=== PATIENT | female | born 1935 | race Caucasian/White ===

== ENCOUNTER 2018-06-04 01:19 | Inpatient (IN) | payer MEDICARE, OTHER ==
[~2018-06-04] VITALS: Ht 165.1 cm; Wt 54.5 kg
[~2018-06-04 01:19] MED LIST: ASPI-1265 PO; DIGO-27 PO; LEVO25TA2 PO; LISI10TA4 PO; METO25TA6 PO
[2018-06-04 02:37] LABS: BASOPHILS % (AUTO) 0.2 % (0-1); EOSINOPHILS # (AUTO) 0.2 X10'3 (0-0.9); EOSINOPHILS % (AUTO) 1.1 % (0-6); HEMATOCRIT 41.2 % (35.0-45.0); LYMPHOCYTES # (AUTO) 0.8 X10'3 (1.1-4.8); LYMPHOCYTES % (AUTO) 3.4 % (21-51); MEAN CORPUSCULAR HEMOGLOBIN 30.6 PG (27.0-31.0); MEAN CORPUSCULAR HGB CONC 33.9 % (33.0-36.5); MEAN CORPUSCULAR VOLUME 90.3 FL (78-98); MEAN PLATELET VOLUME 8.6 FL (7.4-10.4); MONOCYTES # (AUTO) 1.2 X10'3 (0-0.9); MONOCYTES % (AUTO) 5.6 % (2-12); NEUTROPHILS % (AUTO) 89.7 % (42-75); PLATELET COUNT 163 X10'3 (140-440); RED BLOOD COUNT 4.57 X10'6 (4.20-5.60); RED CELL DISTRIBUTION WIDTH 13.6 % (11.5-14.5); WHITE BLOOD COUNT 22.3 X10'3 (4.5-11.0)
[2018-06-04 02:47] LABS: PROTHROMBIN TIME 10.7 SECONDS (9.0-12.0)
[2018-06-04 02:52] LABS: ALANINE AMINOTRANSFERASE 28 U/L (12-78); ALBUMIN 3.1 G/DL (3.4-5.0); ALBUMIN/GLOBULIN RATIO 0.9 (1.1-1.5); ALKALINE PHOSPHATASE 54 IU/L (46-116); ANION GAP 7 (8-16); ASPARTATE AMINO TRANSFERASE 21 U/L (10-37); BILIRUBIN,TOTAL 0.4 MG/DL (0.1-1.0); BLOOD UREA NITROGEN 15 MG/DL (7-18); BUN/CREATININE RATIO 11.8 (6.6-38.0); CALCIUM 8.5 MG/DL (8.5-10.1); CHLORIDE 106 MMOL/L (99-107); CREATININE 1.27 MG/DL (0.40-0.90); GLUCOSE 158 MG/DL (70-104); LIPASE 133 U/L (73-393); MAGNESIUM 1.5 MG/DL (1.5-2.4); POTASSIUM 4.4 MMOL/L (3.5-5.1); SODIUM 138 MMOL/L (135-145); TOTAL CARBON DIOXIDE 24.6 MMOL/L (24-32); TOTAL PROTEIN 6.4 G/DL (6.4-8.2); eGFR 40 ML/MIN
[2018-06-04] MEDS ORDERED: famotidine/PF 10 mg/ml inj IV ONE (03:05)
[2018-06-04] MEDS ORDERED: normal saline 1000ML IV soln IVB ONE ×2 (03:05)
[2018-06-04] MEDS ORDERED: ondansetron/PF 4mg/2ml inj IV ONE (03:05)
[2018-06-04 03:30] LABS: CLARITY,URINE CLEAR (Clear); COLOR,URINE YELLOW (Yellow); GLUCOSE, URINE NEGATIVE (Neg); KETONES,URINE NEGATIVE (Neg); LEUKOCYTE ESTERASE ,URINE MODERATE (Neg); NITRITES, URINE NEGATIVE (Neg); OCCULT BLOOD,URINE NEGATIVE (Neg); PROTEIN,URINE NEGATIVE (Neg); UROBILINOGEN,URINE 0.2 E.U/dL (0.2-1.0)
[2018-06-04 03:49] LABS: UA COLLECTION TYPE CLN CATCH MIDSTREAM
[2018-06-04 03:51] LABS: AMORPHOUS URATES 1+; BACTERIA,URINE 3+ /HPF (Neg); RBC,URINE NONE SEEN /HPF (0-2); SQUAMOUS EPITHELIAL CELL,UR FEW /LPF (FEW)
[2018-06-04] MEDS ORDERED: CefTRIAXone/D5W-Rocephin 1gm 50 ML IV ONE (04:40)
[2018-06-04] MEDS ORDERED: PRAV20TA4 PO (05:11)
[2018-06-04] MEDS ORDERED: PRAV40TA3 PO (05:11)
[2018-06-04] MEDS ORDERED: METO25TA6 PO (05:11)
[2018-06-04] MEDS: normal saline 1000ml 1,000 ML IV SCH ×2 (05:47→14:26)
[2018-06-04] MEDS ORDERED: mag hydrox/Alum hydrox/simeth 30ml oral suspension PO PRN (05:50)
[2018-06-04] MEDS ORDERED: morphine 4 MG/ML inj SYRINge IV PRN ×2 (05:50)
[2018-06-04] MEDS ORDERED: magnesium hydroxide 30ml (MOM) UD suspension PO PRN (05:50)
[2018-06-04] MEDS ORDERED: acetaminophen 325mg tablet PO PRN ×2 (05:50)
[2018-06-04] MEDS ORDERED: ondansetron/PF 4mg/2ml inj IV PRN (05:50)
[2018-06-04 08:00] VITALS: BP 129/56
[2018-06-04] MEDS ORDERED: non-formulary drug (Pravastatin Sodium 1 TAB) PO SCH (08:00)
[2018-06-04] MEDS ORDERED: metoprolol tartrate 25mg tablet PO SCH (08:00)
[2018-06-04] MEDS: digoxin 250mcg (0.25mg) tablet PO SCH (08:21)
[2018-06-04] MEDS: metoprolol tartrate 25mg tablet PO SCH ×2 (08:22→20:00)
[2018-06-04] MEDS: levoTHYROXINE 25mcg tablet PO SCH (08:22)
[2018-06-04] MEDS: aspirin 81mg tab.chew PO SCH (08:23)
[2018-06-04] MEDS: lisinopril 10 MG tablet PO SCH (08:23)
[2018-06-04 10:00] VITALS: BP 91/35
[2018-06-04] MEDS: enoxaparin 40mg/0.4ml syringe SUBCUT SCH (17:20)
[2018-06-04] MEDS: pantoprazole 40 MG vial IV SCH (17:21)
[2018-06-04] MEDS: piperacillin/tazo 4.5gm/100ml 100 ML IV SCH (17:39)
[2018-06-04 18:00] VITALS: BP 91/30
[2018-06-04 20:30] VITALS: BP 103/41
[2018-06-04] MEDS: pravastatin 40mg tablet PO SCH ×2 (20:42→20:43)
[2018-06-04 22:00] VITALS: BP 109/37
[2018-06-05] MEDS: piperacillin/tazo 4.5gm/100ml 100 ML IV SCH ×3 (00:48→15:33)
[2018-06-05] MEDS: normal saline 1000ml 1,000 ML IV SCH ×2 (00:52→15:33)
[2018-06-05 06:00] VITALS: BP 106/39
[2018-06-05 06:12] LABS: BASOPHILS % (AUTO) 0.3 % (0-1); EOSINOPHILS # (AUTO) 0.7 X10'3 (0-0.9); EOSINOPHILS % (AUTO) 5.8 % (0-6); HEMATOCRIT 35.5 % (35.0-45.0); HEMOGLOBIN 12.3 g/dl (12.0-16.0); LYMPHOCYTES # (AUTO) 2.4 X10'3 (1.1-4.8); LYMPHOCYTES % (AUTO) 19.4 % (21-51); MEAN CORPUSCULAR HEMOGLOBIN 30.9 PG (27.0-31.0); MEAN CORPUSCULAR HGB CONC 34.7 % (33.0-36.5); MONOCYTES % (AUTO) 8.4 % (2-12); NEUTROPHILS # (AUTO) 8.1 X10'3 (1.8-7.7); NEUTROPHILS % (AUTO) 66.1 % (42-75); PLATELET COUNT 132 X10'3 (140-440); RED BLOOD COUNT 3.99 X10'6 (4.20-5.60); RED CELL DISTRIBUTION WIDTH 13.7 % (11.5-14.5); WHITE BLOOD COUNT 12.3 X10'3 (4.5-11.0)
[2018-06-05 06:25] LABS: ALBUMIN 2.7 G/DL (3.4-5.0); ANION GAP 6 (8-16); BLOOD UREA NITROGEN 13 MG/DL (7-18); BUN/CREATININE RATIO 9.5 (6.6-38.0); CALCIUM 8.5 MG/DL (8.5-10.1); CHLORIDE 105 MMOL/L (99-107); CREATININE 1.37 MG/DL (0.40-0.90); GLUCOSE 93 MG/DL (70-104); POTASSIUM 3.8 MMOL/L (3.5-5.1); SODIUM 136 MMOL/L (135-145); TOTAL CARBON DIOXIDE 24.9 MMOL/L (24-32); eGFR 37 ML/MIN
[2018-06-05] MEDS ORDERED: CefTRIAXone 2gm/D5W 50ml 50 ML IV SCH (08:00)
[2018-06-05] MEDS: pantoprazole 40 MG vial IV SCH (08:07)
[2018-06-05] MEDS: levoTHYROXINE 25mcg tablet PO SCH (08:10)
[2018-06-05] MEDS: digoxin 250mcg (0.25mg) tablet PO SCH (08:10)
[2018-06-05] MEDS: aspirin 81mg tab.chew PO SCH (08:10)
[2018-06-05] MEDS: enoxaparin 40mg/0.4ml syringe SUBCUT SCH (08:11)
[2018-06-05] MEDS: lisinopril 10 MG tablet PO SCH (08:11)
[2018-06-05 10:00] VITALS: BP 95/48
[2018-06-05] MEDS ORDERED: metoprolol tartrate 12.5mg (1/2 tablet) PO ONE (10:20)
[2018-06-05 18:00] VITALS: BP 104/43
[2018-06-05] MEDS: metoprolol tartrate 12.5mg (1/2 tablet) PO SCH (19:50)
[2018-06-05] MEDS: pravastatin 40mg tablet PO SCH (21:20)
[2018-06-06] MEDS: piperacillin/tazo 4.5gm/100ml 100 ML IV SCH ×2 (00:14→07:45)
[2018-06-06 05:25] LABS: BASOPHILS % (AUTO) 0.2 % (0-1); EOSINOPHILS # (AUTO) 0.7 X10'3 (0-0.9); EOSINOPHILS % (AUTO) 8.2 % (0-6); HEMATOCRIT 35.7 % (35.0-45.0); LYMPHOCYTES # (AUTO) 1.6 X10'3 (1.1-4.8); LYMPHOCYTES % (AUTO) 18.6 % (21-51); MEAN CORPUSCULAR HEMOGLOBIN 30.3 PG (27.0-31.0); MEAN CORPUSCULAR HGB CONC 33.7 % (33.0-36.5); MEAN CORPUSCULAR VOLUME 89.8 FL (78-98); MEAN PLATELET VOLUME 8.9 FL (7.4-10.4); MONOCYTES # (AUTO) 0.8 X10'3 (0-0.9); MONOCYTES % (AUTO) 9.4 % (2-12); NEUTROPHILS # (AUTO) 5.5 X10'3 (1.8-7.7); NEUTROPHILS % (AUTO) 63.6 % (42-75); PLATELET COUNT 124 X10'3 (140-440); RED BLOOD COUNT 3.97 X10'6 (4.20-5.60); RED CELL DISTRIBUTION WIDTH 13.1 % (11.5-14.5); WHITE BLOOD COUNT 8.7 X10'3 (4.5-11.0)
[2018-06-06 05:34] LABS: ALBUMIN 2.6 G/DL (3.4-5.0); ANION GAP 6 (8-16); BLOOD UREA NITROGEN 10 MG/DL (7-18); BUN/CREATININE RATIO 8.1 (6.6-38.0); CALCIUM 8.6 MG/DL (8.5-10.1); CHLORIDE 108 MMOL/L (99-107); CREATININE 1.24 MG/DL (0.40-0.90); GLUCOSE 100 MG/DL (70-104); POTASSIUM 3.6 MMOL/L (3.5-5.1); SODIUM 140 MMOL/L (135-145); TOTAL CARBON DIOXIDE 25.7 MMOL/L (24-32); eGFR 41 ML/MIN
[2018-06-06] MEDS: normal saline 1000ml 1,000 ML IV SCH (05:44)
[2018-06-06 06:53] VITALS: BP 152/57
[2018-06-06] MEDS: aspirin 81mg tab.chew PO SCH (07:46)
[2018-06-06] MEDS: enoxaparin 40mg/0.4ml syringe SUBCUT SCH (07:46)
[2018-06-06] MEDS: pantoprazole 40 MG vial IV SCH (07:46)
[2018-06-06] MEDS: lisinopril 10 MG tablet PO SCH (07:47)
[2018-06-06] MEDS: digoxin 250mcg (0.25mg) tablet PO SCH (07:47)
[2018-06-06] MEDS: metoprolol tartrate 12.5mg (1/2 tablet) PO SCH (07:47)
[2018-06-06] MEDS: levoTHYROXINE 25mcg tablet PO SCH (07:47)
[2018-06-06 10:00] VITALS: BP 110/56
[2018-06-06] MEDS ORDERED: LEVO500T2 PO (12:57)
== END 2018-06-06 13:50 | disposition home health service (06) | DRG 871 ==
LOC: ER 01:19 → ED HOLD 05:47 → ORTHO 4S 06:45 → CMPBEDREQ 07:09 → ORTHO 4S 13:45
PROVIDERS: ADMIT Internal Medicine; ATTEND Family Medicine
DX: A41.9 Sepsis, unspecified organism (principal); J69.0 Pneumonitis due to inhalation of food and vomit; N39.0 Urinary tract infection, site not specified; I69.351 Hemiplegia and hemiparesis following cerebral infarction affecting right dominant side; E03.9 Hypothyroidism, unspecified; Z60.2 Problems related to living alone; I10 Essential (primary) hypertension; I48.91 Unspecified atrial fibrillation; I69.320 Aphasia following cerebral infarction; Z90.12 Acquired absence of left breast and nipple; Z91.013 Allergy to seafood; Z91.018 Allergy to other foods; Z79.899 Other long term (current) drug therapy; Z79.82 Long term (current) use of aspirin; Z56.0 Unemployment, unspecified; Z85.3 Personal history of malignant neoplasm of breast
CPT/HCPCS: 36415; 71045; 74018; 74176; 80048; 80053; 81001; 83605; 83690; 83735; 84145; 84443; 84484; 85025; 85610; 87040; 87070; 87088; 92616; 93005; 96374; 96375; 97116; 97161; 99285; C9113; J0696; J1650; J2405; J2543; J3490; J7030